=== PATIENT | male | born 1960 | race Caucasian/White ===

== ENCOUNTER → 2023-10-07 | Outpatient (CLI) | payer MEDICARE | END | disposition home or self-care (01) | LOC: SHCH 10:34 | PROVIDERS: ATTEND Internal Medicine Cardiovascular Disease | DX: I87.1 Compression of vein (principal) | CPT/HCPCS: 93970 ==

== ENCOUNTER → 2023-12-09 | Outpatient (CLI) | payer OTHER | END | disposition home or self-care (01) | LOC: SHCH 13:39 | PROVIDERS: ATTEND Internal Medicine Cardiovascular Disease | DX: I87.2 Venous insufficiency (chronic) (peripheral) (principal); Z09 Encounter for follow-up examination after completed treatment for conditions other than malignant neoplasm | CPT/HCPCS: 93971 ==

== ENCOUNTER → 2024-01-09 | Outpatient (CLI) | payer OTHER ==
[2024-01-09 12:41] LABS: BASOPHILS # (AUTO) 0.09 K/uL (0.00-0.20); BASOPHILS % (AUTO) 0.8 % (0.0-5.0); EOSINOPHILS # (AUTO) 1.54 K/uL (0.00-0.70); EOSINOPHILS % (AUTO) 14.1 % (0.0-8.0); HEMATOCRIT 46.3 % (42-54); IMMATURE GRANULOCYTE ABSOLUTE 0.07 K/uL (0-1); LYMPHOCYTES # (AUTO) 3.7 K/uL (1.0-4.8); LYMPHOCYTES % (AUTO) 33.9 % (21.0-51.0); MEAN CORPUSCULAR HEMOGLOBIN 32.1 pg (27.0-33.0); MEAN CORPUSCULAR HGB CONC 34.3 g/dL (32.0-36.0); MEAN CORPUSCULAR VOLUME 93.5 fL (79-99); MONOCYTES # (AUTO) 1.1 K/uL (0.1-1.0); MONOCYTES % (AUTO) 9.9 % (3.0-13.0); NEUTROPHILS # (AUTO) 4.5 K/uL (1.8-7.7); NEUTROPHILS % (AUTO) 40.7 % (40.0-77.0); PLATELET COUNT (AUTO) 412 K/uL (130-400); RED BLOOD CELL COUNT(AUTO) 4.95 MIL/uL (4.50-6.20); RED CELL DISTRIBUTION WIDTH 13.4 % (11.0-15.5); WHITE BLOOD COUNT (AUTO) 10.9 K/uL (4.8-10.8)
[2024-01-09 12:49] LABS: INR <= 0.93 (0.85-1.15)
[2024-01-09 13:03] LABS: PARTIAL THROMBOPLASTIN TIME 29.1 SEC (26.3-35.5)
[2024-01-09 13:15] LABS: CREATININE 0.8 mg/dL (0.5-1.3); POTASSIUM 4.3 mmol/L (3.5-5.1)
== END | disposition home or self-care (01) ==
LOC: LAB 11:08
PROVIDERS: ATTEND Internal Medicine Cardiovascular Disease
DX: Z01.812 Encounter for preprocedural laboratory examination (principal); I87.1 Compression of vein; I87.2 Venous insufficiency (chronic) (peripheral); M79.662 Pain in left lower leg; M79.661 Pain in right lower leg
CPT/HCPCS: 36415; 80048; 85025; 85610; 85730

== ENCOUNTER → 2024-02-14 | Outpatient (CLI) | payer OTHER ==
--- NOTE | 2024-02-14 16:49 | HMCSR ---
APPROVED REPORT Laterality: Bilateral Indications Claudication: , PAD VELOCITY AND DOPPLER WAVEFORM ANALYSIS CLERK (R) 358.9cm/sec, Biphasic, Severe > 75%CLERK (L) 175.2cm/sec, Biphasic, Prof Fem Art. (R) 91.5cm/sec, Biphasic, Prof Fem Art. (L) 101.4cm/sec, Biphasic, Fem Art Prox. (R) 89.1cm/sec, Biphasic, Fem Art Prox. (L) 70.9cm/sec, Monophasic, Fem Art Mid. (R) 211.1cm/sec, Biphasic, Moderate > 50%Fem Art Mid. (L) 483.1cm/sec, Monophasic, Se taina > 75% Fem Art Dist (R) 164.7cm/sec, Monophasic, Fem Art Dist. (L) 197.4cm/sec, Monophasic, Moderate > 5 0% Pop Art(AK) (R) 49.0cm/sec, Monophasic, Pop Art (AK) (L) 68.2cm/sec, Monophasic, Pop Art (Fossa)(R) 81.4cm/sec, Monophasic, Pop Art (Fossa) (L) 74.5cm/sec, Monophasic, Pop Art(BK) (R) 138.9cm/sec, Monophasic, Pop Art (BK) (L) 106.8cm/sec, Monophasic, INCLUSION PARAEDUCATOR Prox. (R) 92.6cm/sec, Monophasic, INCLUSION PARAEDUCATOR Prox. (L) 75.4cm/sec, Monophasic, INCLUSION PARAEDUCATOR Mid. (R) 100.7cm/sec, Monophasic, INCLUSION PARAEDUCATOR Mid. (L) 55.6cm/sec, Monophasic, INCLUSION PARAEDUCATOR Dist. (R) 94.9cm/sec, Monophasic, INCLUSION PARAEDUCATOR Dist. (L) 86.1cm/sec, Monophasic, Per Art Prox. (R) 39.4cm/sec, Monophasic, Per Art Prox. (L) 34.1cm/sec, Monophasic, Per Art Mid. (R) 54.4cm/sec, Monophasic, Per Art Mid. (L) 48.5cm/sec, Monophasic, Per Art Dist. (R) 54.4cm/sec, Monophasic, Per Art Dist. (L) 41.3cm/sec, Monophasic, LILLIAN Prox. (R) 133.1cm/sec, Monophasic, LILLIAN Prox. (L) 97.8cm/sec, Monophasic, LILLIAN Mid. (R) 62.0cm/sec, Monophasic LILLIAN Mid. (L) 48.5cm/sec, Monophasic, LILLIAN Dist. (R) 62.0cm/sec, Monophasic, LILLIAN Dist. (L) 43.1cm/sec, Monophasic, Technologist Impression Evidence of >75% stenosis in the Right CLERK and Left mid SFA. Evidence of >50% stenosis in the Right mid SFA and Left distal SFA. 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
== END | disposition home or self-care (01) ==
LOC: SHCH 13:08
PROVIDERS: ATTEND Internal Medicine Cardiovascular Disease
DX: I70.203 Unspecified atherosclerosis of native arteries of extremities, bilateral legs (principal)
CPT/HCPCS: 93925

== ENCOUNTER → 2024-04-06 | Outpatient (CLI) | payer OTHER ==
[2024-04-06 12:21] LABS: BASOPHILS # (AUTO) 0.07 K/uL (0.00-0.20); BASOPHILS % (AUTO) 0.6 % (0.0-5.0); EOSINOPHILS # (AUTO) 1.62 K/uL (0.00-0.70); EOSINOPHILS % (AUTO) 14.3 % (0.0-8.0); HEMATOCRIT 43.8 % (42-54); IMMATURE GRANULOCYTE ABSOLUTE 0.04 K/uL (0-1); LYMPHOCYTES # (AUTO) 3.2 K/uL (1.0-4.8); MEAN CORPUSCULAR HEMOGLOBIN 32.4 pg (27.0-33.0); MEAN CORPUSCULAR VOLUME 95.2 fL (79-99); MONOCYTES # (AUTO) 1.1 K/uL (0.1-1.0); MONOCYTES % (AUTO) 9.5 % (3.0-13.0); NEUTROPHILS # (AUTO) 5.4 K/uL (1.8-7.7); NEUTROPHILS % (AUTO) 47.2 % (40.0-77.0); PLATELET COUNT (AUTO) 450 K/uL (130-400); RED CELL DISTRIBUTION WIDTH 13.3 % (11.0-15.5); WHITE BLOOD COUNT (AUTO) 11.3 K/uL (4.8-10.8)
[2024-04-06 12:40] LABS: INR <= 0.93 (0.85-1.15); PROTHROMBIN TIME 9.8 SEC (9.6-11.6)
[2024-04-06 12:41] LABS: PARTIAL THROMBOPLASTIN TIME 26.8 SEC (26.3-35.5)
[2024-04-06 12:46] LABS: CREATININE 0.8 mg/dL (0.5-1.3); POTASSIUM 4.7 mmol/L (3.5-5.1)
== END | disposition home or self-care (01) ==
LOC: LAB 09:54
PROVIDERS: ATTEND Internal Medicine Cardiovascular Disease
DX: Z01.812 Encounter for preprocedural laboratory examination (principal); I87.2 Venous insufficiency (chronic) (peripheral); I87.1 Compression of vein; I10 Essential (primary) hypertension; I73.9 Peripheral vascular disease, unspecified; M79.662 Pain in left lower leg; M79.661 Pain in right lower leg; Z79.899 Other long term (current) drug therapy
CPT/HCPCS: 36415; 80048; 85025; 85610; 85730